=== PATIENT | male | born 1975 | race Caucasian/White ===

== ENCOUNTER 2021-02-24 03:09 | Emergency (ER) | payer OTHER ==
[~2021-02-24] VITALS: Ht 175.3 cm; Wt 65.9 kg
[2021-02-24] MEDS ORDERED: PredniSONE 20 MG TABLET PO ONE (03:30)
[2021-02-24] MEDS ORDERED: ALBUTEROL SULFATE HFA 90 MCG/PUFF 8 GM INHALER IH ONE (03:30)
[2021-02-24 05:08] VITALS: BP 115/75
== END 2021-02-24 06:00 | disposition home or self-care (01) ==
LOC: EMS 03:10
DX: J45.901 Unspecified asthma with (acute) exacerbation (principal); F17.210 Nicotine dependence, cigarettes, uncomplicated; F12.90 Cannabis use, unspecified, uncomplicated
CPT/HCPCS: 94640; 99283; J7512; J3535